=== PATIENT | male | born 1975 | race Two or more races ===

== ENCOUNTER 2017-09-25 11:26 | Outpatient (CLI) | payer BC ==
[~2017-09-25 11:26] MED LIST: Bisacodyl RC; CEPH500T PO; Carisoprodol PO; LOSA1TAB15 PO; OXYC10TA49 PO; SORB30SO2 PO
[2017-09-25 11:55] LABS: BASOPHILS # (AUTO) 0.1 /CMM (0.0-0.2); BASOPHILS % (AUTO) 1.5 % (0.0-2.0); EOSINOPHILS # (AUTO) 0.3 /CMM (0.0-0.7); EOSINOPHILS % (AUTO) 4.1 % (0.0-6.0); HEMATOCRIT 44 % (39-51); LYMPHOCYTES # (AUTO) 1.8 /CMM (0.8-4.8); LYMPHOCYTES % (AUTO) 25.3 % (20.0-44.0); MEAN CORPUSCULAR HEMOGLOBIN 29 PG (26.0-33.0); MEAN CORPUSCULAR HGB CONC 34 g/dl (31.0-36.0); MEAN CORPUSCULAR VOLUME 86 fL (80-96); MONOCYTES # (AUTO) 0.4 /CMM (0.1-1.30); MONOCYTES % (AUTO) 6.3 % (2.0-12.0); NEUTROPHILS # (AUTO) 4.4 /CMM (1.8-8.9); NEUTROPHILS % (AUTO) 62.8 % (43.0-81.0); PLATELET COUNT (AUTO) 326 /CMM (150-450); RDW COEFFICIENT OF VARIATION 12.4 (11.5-15.0); RED BLOOD CELL COUNT(AUTO) 5.16 MIL/uL (4.5-6.0); WHITE BLOOD COUNT (AUTO) 6.9 K/uL (4.3-11.0)
[2017-09-25 12:15] LABS: ALBUMIN 3.9 g/dL (3.4-5.0); BILIRUBIN,TOTAL 0.9 mg/dL (0.2-1.0); CALCIUM, SERUM 9.3 mg/dL (8.5-10.1); CREATININE 0.9 mg/dL (0.6-1.3); POTASSIUM 3.3 mmol/L (3.5-5.1); TOTAL PROTEIN, SERUM 7.9 g/dL (6.4-8.2)
[2017-09-25 12:19] LABS: FREE T4 (FREE THYROXINE) 0.96 ng/dL (0.76-1.46); THYROID STIMULATING HORMONE 1.459 uIU/mL (0.358-3.74)
[2017-09-26 08:09] LABS: *TESTOSTERONE, SERUM 406 ng/dL (264-916)
[2017-09-27 12:16] LABS: *TESTOSTERONE, FREE (DIRECT) 12.7 pg/mL (6.8-21.5)
== END 2017-09-25 23:59 | disposition home or self-care (01) ==
LOC: LAB 11:26
PROVIDERS: ATTEND Family Medicine
DX: L28.2 Other prurigo (principal); R68.82 Decreased libido
CPT/HCPCS: 36415; 80053-TC; 80061-TC; 84402; 84403; 84439-TC; 84443-TC; 85025-TC

== ENCOUNTER 2017-10-16 11:54 | Outpatient (CLI) | payer BC ==
[2017-10-16 12:44] LABS: ALBUMIN 3.9 g/dL (3.4-5.0); BILIRUBIN,TOTAL 0.6 mg/dL (0.2-1.0); CALCIUM, SERUM 9.4 mg/dL (8.5-10.1); CREATININE 1.1 mg/dL (0.6-1.3); POTASSIUM 3.6 mmol/L (3.5-5.1); TOTAL PROTEIN, SERUM 7.9 g/dL (6.4-8.2)
== END 2017-10-16 23:59 | disposition home or self-care (01) ==
LOC: LAB 11:54
PROVIDERS: ATTEND Family Medicine
DX: R94.5 Abnormal results of liver function studies (principal)
CPT/HCPCS: 36415; 80053-TC; 80061-TC

== ENCOUNTER 2018-02-05 10:29 | Outpatient (CLI) | payer BC ==
[2018-02-05 11:10] LABS: BASOPHILS # (AUTO) 0.2 /CMM (0.0-0.2); BASOPHILS % (AUTO) 2.8 % (0.0-2.0); EOSINOPHILS # (AUTO) 0.1 /CMM (0.0-0.7); EOSINOPHILS % (AUTO) 1.6 % (0.0-6.0); HEMATOCRIT 44 % (39-51); HEMOGLOBIN 15.1 g/dL (13.5-17.5); LYMPHOCYTES # (AUTO) 2.1 /CMM (0.8-4.8); LYMPHOCYTES % (AUTO) 28.4 % (20.0-44.0); MEAN CORPUSCULAR HEMOGLOBIN 29 PG (26.0-33.0); MEAN CORPUSCULAR HGB CONC 34 g/dl (31.0-36.0); MEAN CORPUSCULAR VOLUME 86 fL (80-96); MONOCYTES # (AUTO) 0.5 /CMM (0.1-1.30); MONOCYTES % (AUTO) 6.5 % (2.0-12.0); NEUTROPHILS # (AUTO) 4.5 /CMM (1.8-8.9); NEUTROPHILS % (AUTO) 60.7 % (43.0-81.0); PLATELET COUNT (AUTO) 327 /CMM (150-450); RDW COEFFICIENT OF VARIATION 11.8 (11.5-15.0); RED BLOOD CELL COUNT(AUTO) 5.17 MIL/uL (4.5-6.0); WHITE BLOOD COUNT (AUTO) 7.4 K/uL (4.3-11.0)
[2018-02-05 11:17] LABS: APPEARANCE,URINE Clear (CLEAR); BILIRUBIN,URINE SMALL (NEGATIVE); BLOOD, URINE Negative Ery/uL (NEGATIVE); COLOR,URINE Yellow (YELLOW); KETONES,URINE Trace (NEGATIVE); LEUKOCYTE ESTERASE ,URINE Negative (NEGATIVE); NITRITE, URINE Negative (NEGATIVE); PH,URINE 5.5 (5.0-8.0); PROTEIN,URINE 30 mg/dl (NEGATIVE); UGLUCOSE Negative (NEGATIVE); UROBILINOGEN,URINE 0.2 EU/dL (0.2)
[2018-02-05 11:26] LABS: INR 0.97 (0.85-1.15)
[2018-02-05 11:35] LABS: ALBUMIN 4.5 g/dL (3.4-5.0); CALCIUM, SERUM 9.6 mg/dL (8.5-10.1); CREATININE 1.1 mg/dL (0.6-1.3); POTASSIUM 3.7 mmol/L (3.5-5.1); TOTAL PROTEIN, SERUM 8.9 g/dL (6.4-8.2)
[2018-02-05 12:04] LABS: BACTERIA,URINE Rare /HPF (None Seen); SQUAMOUS EPITHELIAL CELL,UR Rare /HPF (None Seen); WBC,URINE 0-2 /HPF (0-3)
== END 2018-02-05 23:59 | disposition home or self-care (01) ==
LOC: LAB 10:29
PROVIDERS: ATTEND Family Medicine
DX: Z01.818 Encounter for other preprocedural examination (principal); M47.897 Other spondylosis, lumbosacral region; R79.1 Abnormal coagulation profile
CPT/HCPCS: 36415; 72100-TC; 80053-TC; 81000-TC; 85025-TC; 85610-TC; 85730-TC

== ENCOUNTER 2019-02-24 13:08 | Outpatient (CLI) | payer BC | END 2019-02-24 23:59 | disposition home or self-care (01) | LOC: RAD 13:08 | PROVIDERS: ATTEND Family Medicine | DX: M54.5 Low back pain (principal); M54.6 Pain in thoracic spine; M79.642 Pain in left hand; M25.532 Pain in left wrist; R22.32 Localized swelling, mass and lump, left upper limb | CPT/HCPCS: 72074-TC; 72100-TC; 73110; 73130-TC ==

== ENCOUNTER 2019-03-28 10:50 | Outpatient (CLI) | payer BC | END 2019-03-28 23:59 | disposition home or self-care (01) | LOC: RAD 10:50 | PROVIDERS: ATTEND Family Medicine | DX: Z01.818 Encounter for other preprocedural examination (principal) | CPT/HCPCS: 71046 ==

== ENCOUNTER 2019-11-04 09:44 | Outpatient (CLI) | payer BC | END 2019-11-04 23:59 | disposition home or self-care (01) | LOC: RAD 09:44 | PROVIDERS: ATTEND Family Medicine | DX: M47.814 Spondylosis without myelopathy or radiculopathy, thoracic region (principal); Z87.891 Personal history of nicotine dependence | CPT/HCPCS: 71046 ==

== ENCOUNTER 2020-04-23 09:26 | Outpatient (CLI) | payer BC ==
[2020-04-23 11:02] LABS: CALCIUM, SERUM 9.3 mg/dL (8.5-10.1); POTASSIUM 3.5 mmol/L (3.5-5.1); TOTAL PROTEIN, SERUM 8.2 g/dL (6.4-8.2)
[2020-04-23 11:09] LABS: THYROID STIMULATING HORMONE 2.644 uIU/mL (0.358-3.74)
[2020-04-23 11:15] LABS: BASOPHILS # (AUTO) 0.1 /CMM (0.0-0.2); BASOPHILS % (AUTO) 1.1 % (0.0-2.0); EOSINOPHILS % (AUTO) 1.7 % (0.0-6.0); HEMATOCRIT 43 % (39-51); HEMOGLOBIN 14.3 g/dL (13.5-17.5); LYMPHOCYTES # (AUTO) 3.6 /CMM (0.8-4.8); MEAN CORPUSCULAR HGB CONC 33 g/dl (31.0-36.0); MEAN CORPUSCULAR VOLUME 90 fL (80-96); MONOCYTES # (AUTO) 0.7 /CMM (0.1-1.30); MONOCYTES % (AUTO) 5.6 % (2.0-12.0); NEUTROPHILS # (AUTO) 7.4 /CMM (1.8-8.9); NEUTROPHILS % (AUTO) 61.6 % (43.0-81.0); PLATELET COUNT (AUTO) 327 /CMM (150-450); RED BLOOD CELL COUNT(AUTO) 4.84 MIL/uL (4.5-6.0); WHITE BLOOD COUNT (AUTO) 11.9 K/uL (4.3-11.0)
[2020-04-23 11:19] LABS: APPEARANCE,URINE CLEAR (CLEAR); BILIRUBIN,URINE NEGATIVE (NEGATIVE); BLOOD, URINE NEGATIVE Ery/uL (NEGATIVE); COLOR,URINE DARK YELLO (YELLOW); KETONES,URINE NEGATIVE (NEGATIVE); LEUKOCYTE ESTERASE ,URINE NEGATIVE (NEGATIVE); NITRITE, URINE NEGATIVE (NEGATIVE); PROTEIN,URINE NEGATIVE (NEGATIVE); UGLUCOSE NEGATIVE (NEGATIVE); UROBILINOGEN,URINE 0.2 EU/dL (0.2)
[2020-04-23 11:45] LABS: BILIRUBIN,TOTAL 0.8 mg/dL (0.2-1.0)
[2020-04-24 13:06] LABS: FOLIC ACID 6.8 ng/mL (>3.0)
== END 2020-04-23 23:59 | disposition home or self-care (01) ==
LOC: LAB 09:26
PROVIDERS: ATTEND Family Medicine
DX: E11.9 Type 2 diabetes mellitus without complications (principal); E56.9 Vitamin deficiency, unspecified; E55.9 Vitamin D deficiency, unspecified; I10 Essential (primary) hypertension
CPT/HCPCS: 36415; 80053-TC; 80061-TC; 81000-TC; 82306; 84439-TC; 84443-TC; 85025-TC

== ENCOUNTER 2020-04-28 21:29 | Emergency (ER) | payer BC ==
[~2020-04-28] VITALS: Ht 182.9 cm; Wt 118.8 kg
[2020-04-28 21:31] VITALS: BP 149/83
--- NOTE | 2020-04-28 21:40 | NUR ---
PT CAME TO THE ED C/O L SHOULDER PAIN AND BACK PAIN S/P SLIP AND FALL AT THE BATHROOM. DENIES HT. DENIES KO. PT AAOX4, RESPIRATIONS EVEN AND UNLABORED ON RA W/ NAD NOTED. PT CONNECTED TO THE MONITOR AND POX
[2020-04-28] MEDS ORDERED: HYDROCODONE/APAP 10/325MG 1 EA TABLET ONE (23:22)
[2020-04-28] MEDS ORDERED: HYDROCODONE/APAP 10/325MG 1 EA TABLET PO ONE (23:30)
--- NOTE | 2020-04-28 23:32 | NUR ---
Patient discharged to home in stable condition. Written and verbal after care instructions given. Patient verbalizes understanding of instruction. ambulatory with a steady gait
== END 2020-04-28 23:55 | disposition home or self-care (01) ==
LOC: ER 21:29
DX: S40.012A Contusion of left shoulder, initial encounter (principal); S30.0XXA Contusion of lower back and pelvis, initial encounter; I10 Essential (primary) hypertension; E11.9 Type 2 diabetes mellitus without complications; Z98.890 Other specified postprocedural states; Z79.899 Other long term (current) drug therapy; W01.0XXA Fall on same level from slipping, tripping and stumbling without subsequent striking against object, initial encounter; Y93.89 Activity, other specified; Y92.89 Other specified places as the place of occurrence of the external cause; Y99.8 Other external cause status
CPT/HCPCS: 72100-TC; 73030-TC

== ENCOUNTER 2020-05-13 11:02 | Outpatient (CLI) | payer BC ==
[2020-05-13 12:06] LABS: ALBUMIN 4.2 g/dL (3.4-5.0); BILIRUBIN,TOTAL 0.9 mg/dL (0.2-1.0); CALCIUM, SERUM 9.3 mg/dL (8.5-10.1); POTASSIUM 3.4 mmol/L (3.5-5.1); TOTAL PROTEIN, SERUM 8.1 g/dL (6.4-8.2)
[2020-05-13 12:07] LABS: BASOPHILS # (AUTO) 0.1 /CMM (0.0-0.2); BASOPHILS % (AUTO) 1.4 % (0.0-2.0); EOSINOPHILS % (AUTO) 2.7 % (0.0-6.0); HEMATOCRIT 43 % (39-51); HEMOGLOBIN 14.4 g/dL (13.5-17.5); LYMPHOCYTES # (AUTO) 1.8 /CMM (0.8-4.8); LYMPHOCYTES % (AUTO) 28.5 % (20.0-44.0); MEAN CORPUSCULAR HGB CONC 34 g/dl (31.0-36.0); MEAN CORPUSCULAR VOLUME 90 fL (80-96); MONOCYTES # (AUTO) 0.4 /CMM (0.1-1.30); MONOCYTES % (AUTO) 6.5 % (2.0-12.0); NEUTROPHILS # (AUTO) 3.7 /CMM (1.8-8.9); NEUTROPHILS % (AUTO) 60.9 % (43.0-81.0); PLATELET COUNT (AUTO) 371 /CMM (150-450); RED BLOOD CELL COUNT(AUTO) 4.75 MIL/uL (4.5-6.0); WHITE BLOOD COUNT (AUTO) 6.1 K/uL (4.3-11.0)
== END 2020-05-13 23:59 | disposition home or self-care (01) ==
LOC: MRI 11:02
PROVIDERS: ATTEND Family Medicine
DX: M51.34 Other intervertebral disc degeneration, thoracic region (principal); M51.24 Other intervertebral disc displacement, thoracic region; M12.88 Other specific arthropathies, not elsewhere classified, other specified site; M51.26 Other intervertebral disc displacement, lumbar region; M48.07 Spinal stenosis, lumbosacral region; M89.512 Osteolysis, left shoulder; M25.512 Pain in left shoulder; M54.9 Dorsalgia, unspecified; R94.5 Abnormal results of liver function studies
CPT/HCPCS: 36415; 72146-TC; 72148-TC; 73221-TC; 80053-TC; 80061-TC; 85025-TC; 86317; 86709-TC; 86803; 87340

== ENCOUNTER 2020-05-14 08:57 | Outpatient (CLI) | payer BC | END 2020-05-14 23:59 | disposition home or self-care (01) | LOC: US 08:57 | PROVIDERS: ATTEND Family Medicine | DX: R94.5 Abnormal results of liver function studies (principal) | CPT/HCPCS: 76700-TC ==

== ENCOUNTER 2020-12-09 21:24 | Emergency (ER) | payer BC ==
[~2020-12-09] VITALS: Ht 182.9 cm; Wt 115.7 kg
--- NOTE | 2020-12-09 21:25 | NUR ---
PT BIBSELF C/O FEVER, GEN WEAKNESS, GEN BODY PAIN, SORE THROAT. PT STATES HE RECEIVED SECOND DOSE COVID VACCINE YESTERDAY. PT AAOX4. VITAL SIGNS STABLE. NO ACUTE DISTRESS NOTED AT THIS TIME
[2020-12-09 23:01] VITALS: BP 157/84
--- NOTE | 2020-12-09 23:01 | NUR ---
Patient discharged to home in stable condition. Written and verbal after care instructions given. Patient verbalizes understanding of instruction.Pt ambulatory with a steady gait
== END 2020-12-09 23:03 | disposition home or self-care (01) ==
LOC: ER 21:28
DX: J02.9 Acute pharyngitis, unspecified (principal); R00.0 Tachycardia, unspecified; R53.1 Weakness; Z20.822 Contact with and (suspected) exposure to COVID-19; I10 Essential (primary) hypertension; E11.9 Type 2 diabetes mellitus without complications; Z79.899 Other long term (current) drug therapy
CPT/HCPCS: 71045; 99284; C9803; U0003

== ENCOUNTER 2021-02-22 23:06 | Emergency (ER) | payer BC ==
[~2021-02-22] VITALS: Ht 182.9 cm; Wt 113.4 kg
--- NOTE | 2021-02-22 23:20 | NUR ---
dr drake at bed side
[2021-02-22] MEDS ORDERED: FLUCONAZOLE (100 MG) 100 MG TABLET PO ONE (23:30)
[2021-02-22] MEDS ORDERED: FLUCONAZOLE (100 MG) 100 MG TABLET ONE (23:30)
[2021-02-22] MEDS ORDERED: KETOROLAC TROMETHAMINE INJ 60 MG/2 ML VIAL IM ONE ×2 (23:30)
[2021-02-22] MEDS ORDERED: FLUC200T PO (23:31)
[2021-02-22] MEDS ORDERED: ONDA4TAB5 PO (23:31)
[2021-02-22] MEDS ORDERED: HYDR-3980 PO (23:31)
--- NOTE | 2021-02-22 23:44 | NUR ---
Patient discharged to home in stable condition. Rx and Written and verbal after care instructions given. Patient verbalizes understanding of instruction.
[2021-02-22 23:45] VITALS: BP 137/79
== END 2021-02-22 23:45 | disposition home or self-care (01) ==
LOC: ER 23:07
DX: G89.29 Other chronic pain (principal); M54.5 Low back pain; B35.3 Tinea pedis; I10 Essential (primary) hypertension; E11.9 Type 2 diabetes mellitus without complications; Z98.890 Other specified postprocedural states; Z79.899 Other long term (current) drug therapy
CPT/HCPCS: 96372; 99283; J1885

== ENCOUNTER 2021-11-14 11:48 | Outpatient (CLI) | payer BC ==
[~2021-11-14 11:48] MED LIST changes: +FLUC200T PO; +HYDR-3980 PO; +ONDA4TAB5 PO
== END 2021-11-14 23:59 | disposition home or self-care (01) ==
LOC: MRI 11:48
PROVIDERS: ATTEND Family Medicine
DX: M16.11 Unilateral primary osteoarthritis, right hip (principal); M70.62 Trochanteric bursitis, left hip; M70.61 Trochanteric bursitis, right hip; Y93.89 Activity, other specified
CPT/HCPCS: 73721-TC

== ENCOUNTER 2022-09-13 09:18 | Outpatient (CLI) | payer BC ==
[2022-09-13 11:12] LABS: BILIRUBIN,DIRECT 0.2 mg/dL (0.0-0.2); BILIRUBIN,TOTAL 0.6 mg/dL (0.2-1.0); TOTAL PROTEIN, SERUM 7.5 g/dL (6.4-8.2)
== END 2022-09-13 23:59 | disposition home or self-care (01) ==
LOC: LAB 09:18
PROVIDERS: ATTEND Family Medicine
DX: R94.5 Abnormal results of liver function studies (principal)
CPT/HCPCS: 36415; 80076-TC; 86317; 86709-TC; 86803; 87340

== ENCOUNTER 2023-07-28 16:04 | Emergency (ER) | payer BC, OTHER ==
[~2023-07-28] VITALS: Ht 182.9 cm; Wt 118.8 kg
[2023-07-28] MEDS ORDERED: MORPHINE SULFATE INJ 2 MG/ML DISP.SYRIN IM ONE (17:30)
[2023-07-28] MEDS ORDERED: IBUPROFEN 400 MG TABLET PO ONE (17:30)
[2023-07-28] MEDS ORDERED: IBUPROFEN 400 MG TABLET ONE (17:38)
[2023-07-28] MEDS ORDERED: MORPHINE SULFATE INJ 4 MG/ML DISP.SYRIN ONE (17:38)
[2023-07-28] MEDS ORDERED: CYCL10TA9 PO (19:49)
[2023-07-28] MEDS ORDERED: IBUP-1957 PO (19:49)
[2023-07-28 20:08] VITALS: BP 120/97; TEMP 98.7; O2SAT 96
== END 2023-07-28 20:08 | disposition home or self-care (01) ==
LOC: ER 16:11
DX: G89.29 Other chronic pain (principal); M54.50 Low back pain, unspecified; I10 Essential (primary) hypertension; E11.9 Type 2 diabetes mellitus without complications; Z98.890 Other specified postprocedural states; Z60.2 Problems related to living alone; Z79.899 Other long term (current) drug therapy
CPT/HCPCS: 99283; 96372; J2270

== ENCOUNTER 2024-07-06 11:30 | Emergency (ER) | payer BC, OTHER ==
[~2024-07-06] VITALS: Ht 182.9 cm; Wt 113.4 kg
[~2024-07-06 11:30] MED LIST changes: +CYCL10TA9 PO; +IBUP-1957 PO
[2024-07-06 13:14] LABS: BASOPHILS # (AUTO) 0.1 K/uL (0.0-0.2); BASOPHILS % (AUTO) 0.9 % (0.0-2.0); CALCIUM, SERUM 9.4 mg/dL (8.5-10.1); CARBON DIOXIDE 27 mmol/L (21-32); CHLORIDE 105 mmol/L (98-107); CREATININE 0.9 mg/dL (0.6-1.3); EOSINOPHILS # (AUTO) 0.2 K/uL (0.0-0.7); EOSINOPHILS % (AUTO) 2.3 % (0.0-6.0); GLUCOSE 116 mg/dL (74-106); HEMATOCRIT 44 % (39-51); HEMOGLOBIN 14.5 g/dL (13.5-17.5); LYMPHOCYTES # (AUTO) 1.5 K/uL (0.8-4.8); LYMPHOCYTES % (AUTO) 15.4 % (20.0-44.0); MEAN CORPUSCULAR HEMOGLOBIN 29 PG (26.0-33.0); MEAN CORPUSCULAR HGB CONC 33 g/dl (31.0-36.0); MEAN CORPUSCULAR VOLUME 89 fL (80-96); MONOCYTES # (AUTO) 0.8 K/uL (0.1-1.30); NEUTROPHILS % (AUTO) 73.4 % (43.0-81.0); PLATELET COUNT (AUTO) 325 K/uL (150-450); POTASSIUM 3.8 mmol/L (3.5-5.1); RED BLOOD CELL COUNT(AUTO) 4.95 MIL/uL (4.5-6.0); SODIUM SERUM 142 mmol/L (136-145); UREA NITROGEN, BLOOD 17 mg/dL (7-18); WHITE BLOOD COUNT (AUTO) 9.5 K/uL (4.3-11.0)
[2024-07-06] MEDS ORDERED: MORPHINE SULFATE INJ 4 MG/ML DISP.SYRIN ONE (13:52)
[2024-07-06] MEDS ORDERED: ONDANSETRON HCL/PF 4 MG/2 ML VIAL ONE (13:52)
[2024-07-06] MEDS: ONDANSETRON HCL/PF 4 MG/2 ML VIAL IVP ONE (13:58)
[2024-07-06] MEDS: MORPHINE SULFATE INJ 2 MG/ML DISP.SYRIN IV ONE (14:00)
[2024-07-06] MEDS ORDERED: FAMOTIDINE (20 MG) 20 MG TABLET ONE (14:41)
[2024-07-06] MEDS ORDERED: KETOROLAC TROMETHAMINE 15 MG/ML VIAL ONE (14:41)
[2024-07-06] MEDS ORDERED: CYCLOBENZAPRINE 10 MG TABLET ONE (14:41)
[2024-07-06] MEDS: CYCLOBENZAPRINE 10 MG TABLET PO ONE (14:42)
[2024-07-06] MEDS: KETOROLAC TROMETHAMINE 15 MG/ML VIAL IV ONE (14:42)
[2024-07-06] MEDS: FAMOTIDINE (20 MG) 20 MG TABLET PO ONE (14:42)
[2024-07-06] MEDS ORDERED: CYCL5TAB PO (14:45)
[2024-07-06] MEDS ORDERED: IBUP-1490 PO (14:45)
[2024-07-06] MEDS ORDERED: ACET-2605 PO (14:45)
[2024-07-06] MEDS ORDERED: LIDO30AD10 TP (14:45)
[2024-07-06 15:25] VITALS: BP 131/87; TEMP 98; O2SAT 98
== END 2024-07-06 15:04 | disposition home or self-care (01) ==
LOC: ER 11:47
DX: R07.9 Chest pain, unspecified (principal); G89.29 Other chronic pain; M54.9 Dorsalgia, unspecified; M79.605 Pain in left leg; M25.462 Effusion, left knee; I10 Essential (primary) hypertension; E11.9 Type 2 diabetes mellitus without complications; Z60.2 Problems related to living alone
CPT/HCPCS: 99285; 96374; 93971; 96375; 71045; 93005; 85025; 80048; 85378; 36415; 84484; J2270; J2405; J1885

== ENCOUNTER 2024-08-09 12:12 | Emergency (ER) | payer BC, OTHER ==
[~2024-08-09] VITALS: Ht 182.9 cm; Wt 119.3 kg
[~2024-08-09 12:12] MED LIST changes: +ACET-2605 PO; +CYCL5TAB PO; +IBUP-1490 PO; +LIDO30AD10 TP
[2024-08-09] MEDS ORDERED: HYDR-3980 PO (13:33)
[2024-08-09] MEDS ORDERED: HYDROCODONE/APAP 10/325MG TABLET ONE (13:43)
[2024-08-09] MEDS ORDERED: KETOROLAC TROMETHAMINE INJ 60 MG/2 ML VIAL IM ONE (13:43)
[2024-08-09] MEDS: KETOROLAC TROMETHAMINE INJ 60 MG/2 ML VIAL IM ONE (13:44)
[2024-08-09] MEDS: HYDROCODONE/APAP 10/325MG TABLET PO ONE (13:44)
[2024-08-09 13:52] VITALS: BP 161/93; TEMP 98.7; O2SAT 97
== END 2024-08-09 13:53 | disposition home or self-care (01) ==
LOC: ER 12:12
DX: G89.29 Other chronic pain (principal); M54.50 Low back pain, unspecified; M25.562 Pain in left knee; I10 Essential (primary) hypertension
CPT/HCPCS: 99283; 96372; J1885